=== PATIENT | male | born 1985 | race Asian ===

== ENCOUNTER 2019-06-12 10:11 | Outpatient (CLI) | payer OTHER ==
--- NOTE | 2019-06-12 11:03 | RAD ---
PA AND LATERAL CHEST: HISTORY: Chest pain, heart palpitations. FINDINGS: The heart size is borderline to minimally enlarged. Mediastinal structures are unremarkable. The josh ngs are clear of any infiltrates. There are no signs of failure. IMPRESSION: Borderline to minimal cardiomegaly. POS: [facility]
== END 2019-06-12 10:12 | disposition home or self-care (01) ==
LOC: BICRAD 10:11
PROVIDERS: ATTEND Family Medicine
DX: R91.8 Other nonspecific abnormal finding of lung field (principal); I51.7 Cardiomegaly
CPT/HCPCS: 71046

== ENCOUNTER 2019-06-19 12:41 | Outpatient (CLI) | payer OTHER ==
--- NOTE | 2019-06-19 13:14 | RAD ---
PA AND LATERAL VIEWS OF CHEST: Date: 06/19/2019 HISTORY: Nonspecific abnormal finding of lung field. COMPARISON: 06/12/2019. FINDINGS: The heart size is borderline but stable. No lobar consolidation, pneumothoraces, desean pulmonary mehran a, or pleural effusions are seen. IMPRESSION: Stable exam. No acute process. POS: OFF
== END 2019-06-19 12:42 | disposition home or self-care (01) ==
LOC: RAD 12:41
PROVIDERS: ATTEND Family Medicine
DX: R91.8 Other nonspecific abnormal finding of lung field (principal)
CPT/HCPCS: 71046

== ENCOUNTER 2019-06-22 07:34 | Outpatient (CLI) | payer OTHER ==
--- NOTE | 2019-06-22 08:39 | ULT ---
ULTRASOUND ABDOMEN: HISTORY: Abnormal LFTs. FINDINGS: The liver, spleen, gallbladder, pancreas, kidneys, and visualized portions of the aorta and IVC appea r normal. The common duct measures 5 mm in diameter. No free fluid is seen. IMPRESSION: Normal exam. POS: [facility]
== END 2019-06-22 07:35 | disposition home or self-care (01) ==
LOC: ULT 07:34
PROVIDERS: ATTEND Family Medicine
DX: R93.5 Abnormal findings on diagnostic imaging of other abdominal regions, including retroperitoneum (principal); R94.5 Abnormal results of liver function studies
CPT/HCPCS: 93975